=== PATIENT | female | born 1965 | race Caucasian/White ===

== ENCOUNTER 2023-07-08 13:51 | Outpatient (CLI) | payer OTHER | END 2023-07-08 13:52 | disposition home or self-care (01) | LOC: BICRAD 13:51 | PROVIDERS: ATTEND Registered Nurse Hospice | DX: M25.511 Pain in right shoulder (principal); M47.812 Spondylosis without myelopathy or radiculopathy, cervical region; M25.811 Other specified joint disorders, right shoulder | CPT/HCPCS: 72040 ==

== ENCOUNTER 2023-07-12 12:51 | Emergency (ER) | payer OTHER ==
[2023-07-12] MEDS ORDERED: Ketorolac Tromethamine 30 MG (1 mL) VIAL ONE (13:53)
== END 2023-07-12 14:16 | disposition home or self-care (01) ==
LOC: ERS 12:51
DX: M54.2 Cervicalgia (principal); M25.511 Pain in right shoulder; G62.9 Polyneuropathy, unspecified
CPT/HCPCS: 96372; 99282; J1885

== ENCOUNTER 2025-04-23 11:21 | Outpatient (CLI) | payer OTHER | END 2025-04-23 11:22 | disposition home or self-care (01) | LOC: BICMAMMO 11:21 | PROVIDERS: ATTEND Family Medicine | DX: Z12.31 Encounter for screening mammogram for malignant neoplasm of breast (principal); Z80.3 Family history of malignant neoplasm of breast; Z98.890 Other specified postprocedural states | CPT/HCPCS: 77063; 77067 ==